=== PATIENT | male | born 1995 | race Caucasian/White ===

== ENCOUNTER 2018-07-11 16:54 | Emergency (ER) | END 2018-07-11 20:05 | disposition home or self-care (01) ==

== ENCOUNTER 2018-07-17 10:11 | Emergency (ER) | END 2018-07-17 11:34 | disposition home or self-care (01) ==

== ENCOUNTER 2019-06-27 15:11 | Emergency (ER) | payer OTHER ==
[~2019-06-27] VITALS: Ht 172.7 cm; Wt 97.3 kg
[~2019-06-27 15:11] MED LIST: ELEC100095 PO; LACT1CAP57 PO; LOPE2CAP PO
[2019-06-27 15:16] VITALS: BP 142/89; PULSE 87; RESP 16; Ht 172.7 cm; Wt 97.3 kg
== END 2019-06-27 17:21 | disposition home or self-care (01) ==
LOC: FTE 15:11
DX: R53.1 Weakness (principal); R19.7 Diarrhea, unspecified; Z87.891 Personal history of nicotine dependence
CPT/HCPCS: 81003; 99282